=== PATIENT | female | born 1990 | race Caucasian/White ===

== ENCOUNTER 2016-12-27 16:58 | Inpatient (IN) | payer BC, OTHER ==
[~2016-12-27] VITALS: Ht 167.6 cm; Wt 74.1 kg
[2016-12-27] VITALS (15 sets, daily range): BP systolic 125–138; BP diastolic 71–86
[~2016-12-27 16:58] MED LIST: CRYSELLE1 EACH PO; FOLIC ACID0.4 MG PO; IBUPROFEN800 MG PO; MACROBID100 MG PO; NORCO 5/3251 TABLET PO; PRENATAL TABLE1 EAC3 PO; PROCARDIA20 MG PO; ROBITUSSIN DM118 ML PO; TORADOL10 MG PO; TYLENOL REGULA325 MG PO; TYLENOL WITH C1 EACH PO; VENTOLIN HFA18 GM IH; ZITHROMAX500 MG PO; ZOFRAN4 MG PO; [UNRECOGNIZED DRUG - OTHER] IM
[2016-12-27 18:03] LABS: EOSINOPHIL (%) 1.6 % (0-5); EOSINOPHIL COUNT 0.2 K/uL (0-0.3); HEMATOCRIT 33.2 % (36.0-46.0); IMMATURE GRANULOCYTE (%) 0.3 % (0.0-0.7); INSTRUMENT ABS NEUTROPHIL CT 7.4 K/uL; LYMPHOCYTE COUNT 1.7 K/uL (1.0-2.8); MCH 27.3 PG (29.0-34.0); MCHC 32.5 G/DL (30.0-36.0); MCV 84.1 FL (83-99); MEAN PLAT.VOLUME 10.6 uM^3 (9.5-12.4); MONOCYTE (%) 6.6 % (3-12); MONOCYTE COUNT 0.7 K/uL (0-0.8); NEUTROPHIL (%) 74.6 % (45-76); NEUTROPHIL COUNT 7.4 K/uL (1.8-6.4); PLATELET COUNT 303 K/uL (156-360); RBC DIS.WIDTH-CV 13.2 % (11.8-14.6); RBC DIS.WIDTH-SD 40.2 % (39-53); RED BLOOD COUNT 3.95 M/uL (3.80-5.20); WHITE BLOOD COUNT 9.9 K/uL (4.1-10.2)
[2016-12-27] MEDS ORDERED: IBUPROFEN800 MG PO (23:55)
[2016-12-28] VITALS (7 sets, daily range): BP systolic 120–136; BP diastolic 60–83
[2016-12-29 07:26] VITALS: BP 138/73
== END 2016-12-29 14:20 | disposition home or self-care (01) | DRG 774 ==
LOC: LDRP-OP 16:58 → 2WEST 17:00 → LDRP-OP 02-06 23:34
PROVIDERS: Midwife
PROC: 10E0XZZ Delivery of Products of Conception, External Approach (ICD-10-PCS; principal; 2016-12-27)
PROC: 3E0R3BZ Introduction of Anesthetic Agent into Spinal Canal, Percutaneous Approach (ICD-10-PCS; principal; 2016-12-27)
PROC: 10907ZC Drainage of Amniotic Fluid, Therapeutic from Products of Conception, Via Natural or Artificial Opening (ICD-10-PCS; principal; 2016-12-27)
PROC: 00HU33Z Insertion of Infusion Device into Spinal Canal, Percutaneous Approach (ICD-10-PCS; principal; 2016-12-27)
DX: O99.824 Streptococcus B carrier state complicating childbirth (principal); O99.42 Diseases of the circulatory system complicating childbirth; Q21.9 Congenital malformation of cardiac septum, unspecified; I44.0 Atrioventricular block, first degree; I49.8 Other specified cardiac arrhythmias; O99.354 Diseases of the nervous system complicating childbirth; G90.1 Familial dysautonomia [Riley-Day]; Z3A.38 38 weeks gestation of pregnancy; Z37.0 Single live birth
CPT/HCPCS: 59025; 85025; C1755; G0378; J3010; J3370; J7120